=== PATIENT | female | born 1990 | race Caucasian/White ===

== ENCOUNTER 2020-12-25 03:22 | Inpatient (IN) | payer OTHER ==
[~2020-12-25] VITALS: Ht 170.2 cm; Wt 61.2 kg
[2020-12-25] MEDS ORDERED: DEXT 5%/LR + PITOCIN 20UNITS/L 1,000 ML IV SCH ×2 (04:30→08:30)
[2020-12-25] MEDS ORDERED: CARBOPROST TROMETHAMINE 250 MCG/ML AMPUL IM PRN (04:30)
[2020-12-25] MEDS ORDERED: METHYLERGONOVINE MALEATE 0.2 MG/ML IM PRN (04:30)
[2020-12-25] MEDS ORDERED: RHO(D) IMMUNE GLOBULIN 300 MCG/SYR IM ONE (04:30)
[2020-12-25] MEDS ORDERED: BUTORPHANOL TARTRATE 2 MG/ML VIAL IV PRN (04:30)
[2020-12-25] MEDS ORDERED: MISOPROSTOL 200MCG TABLET VG SCH (04:45)
[2020-12-25] MEDS ORDERED: FERR325T6 PO (04:55)
[2020-12-25] MEDS ORDERED: PREN-182 PO (04:55)
[2020-12-25] MEDS ORDERED: FISH GT (04:57)
[2020-12-25] MEDS ORDERED: FAMO20TA8 PO (04:57)
[2020-12-25] MEDS ORDERED: PENICILLIN G POTASSIUM 5 MMU in DEXT 5% WATER 100 ML IV SCH ×3 (05:00→08:00)
[2020-12-25] MEDS: LACTATED RINGERS 1,000 ML IV SCH ×2 (05:04→05:26)
[2020-12-25 05:13] LABS: BASOPHILS % 0.8 % (0.0-2.0); EOSINOPHILS % 0.4 % (0.0-5.0); HEMATOCRIT. 36.7 % (36.0-48.0); LYMPHOCYTES % 28.1 % (20.0-50.0); MEAN CORPUSCULAR HEMOGLOBIN 25.4 pg (28.0-32.0); MEAN CORPUSCULAR VOLUME 78.1 fL (81.0-99.0); MEAN PLATELET VOLUME 8.2 fl (7.4-10.4); NEUTROPHILS % 61.7 % (40.0-76.0); PLATELET 277 x1000/uL (130-400)
[2020-12-25] MEDS ORDERED: KETOROLAC 30MG/ML VIAL IV PRN (05:15)
[2020-12-25] MEDS ORDERED: DIPHENHYDRAMINE 50MG/ML VIAL IV PRN ×2 (05:15→07:15)
[2020-12-25] MEDS ORDERED: CITRIC ACID/SODIUM CITRATE SOLN 30ML UDC PO ONE (05:15)
[2020-12-25] MEDS ORDERED: ONDANSETRON HCL 4MG/2ML INJ IV PRN ×3 (05:15→08:30)
[2020-12-25] MEDS ORDERED: ACETAMINOPHEN 325MG TABLET PO PRN (05:15)
[2020-12-25] MEDS ORDERED: OXYCODONE HCL 5MG TABLET PO PRN (05:15)
[2020-12-25] MEDS ORDERED: METOCLOPRAMIDE HCL 10MG/2ML VIAL ONE (05:21)
[2020-12-25 05:22] LABS: CLARITY URINE CLOUDY (CLEAR); COLOR URINE YELLOW (YELLOW); KETONES URINE NEGATIVE (NEGATIVE); LEUKOCYTE ESTERASE URINE TRACE (NEGATIVE); NITRITE URINE NEGATIVE (NEGATIVE); OCCULT BLOOD URINE 2+ (NEGATIVE); PROTEIN URINE NEGATIVE (NEGATIVE); SPECIFIC GRAVITY URINE 1.012 (1.005-1.030); UROBILINOGEN URINE 0.2 E.U./dL (0.2-1.0)
[2020-12-25] MEDS ORDERED: EPHEDRINE SULFATE 50MG/ML VIAL ONE ×2 (05:24→07:32)
[2020-12-25 05:26] LABS: CHLORIDE 104 mEq/L (98-107); INR 0.9; PARTIAL THROMBOPLASTIN TIME 27.2 sec (23.4-31.0); PROTHROMBIN TIME 9.9 sec (9.6-11.0)
[2020-12-25 05:59] LABS: HEPATITIS B SURFACE ANTIGEN NEGATIVE
[2020-12-25] MEDS ORDERED: TERBUTALINE SULFATE 1MG/ML VIAL SUBCUT ONE (06:00)
[2020-12-25] MEDS ORDERED: IBUPROFEN 600MG TABLET PO SCH (06:00)
[2020-12-25 06:08] LABS: METHADONE URINE SCREEN NEGATIVE (NEGATIVE); OPIATES URINE SCREEN NEGATIVE (NEGATIVE); PHENCYCLIDINE URINE SCREEN NEGATIVE (NEGATIVE)
[2020-12-25 06:09] LABS: *AMPHETAMINES SCREEN URINE NEGATIVE (NEGATIVE); *BARBITURATES SCREEN URINE NEGATIVE (NEGATIVE); *BENZODIAZEPINES SCREEN URINE NEGATIVE (NEGATIVE); *COCAINE SCREEN URINE NEGATIVE (NEGATIVE); CANNABINOID URINE SCREEN NEGATIVE (NEGATIVE)
[2020-12-25] MEDS ORDERED: TERBUTALINE SULFATE 1MG/ML VIAL ONE (06:09)
[2020-12-25] MEDS ORDERED: METOCLOPRAMIDE HCL 10MG/2ML VIAL IV PRN (07:15)
[2020-12-25] MEDS ORDERED: FENTANYL CITRATE/PF 50MCG/ML 2ML VIAL IV PRN (07:15)
[2020-12-25] MEDS ORDERED: MORPHINE SULFATE 10 MG/ML CPJ IV PRN (07:15)
[2020-12-25] MEDS ORDERED: NALOXONE HCL 0.4 MG/ML 1ML VIAL IV PRN (07:15)
[2020-12-25] MEDS ORDERED: CEFAZOLIN SODIUM 1000MG/VIAL ONE (07:31)
[2020-12-25] MEDS ORDERED: MORPHINE SULFATE/PF 1MG/ML 10ML AMP ONE (07:31)
[2020-12-25] MEDS ORDERED: OXYTOCIN 10 UNITS/ML 1ML ONE (07:31)
[2020-12-25] MEDS ORDERED: SUCCINYLCHOLINE CHLORIDE 200MG/10ML IV ONE (07:32)
[2020-12-25] MEDS ORDERED: RHO(D) IMMUNE GLOBULIN 300 MCG/SYR IM PRN (08:30)
[2020-12-25] MEDS ORDERED: LANOLIN OINT 7GM TUBE TOP PRN (08:30)
[2020-12-25] MEDS ORDERED: IBUPROFEN 400MG TABLET PO PRN (08:30)
[2020-12-25] MEDS ORDERED: BISACODYL 10MG SUPP PR PRN (08:30)
[2020-12-25] MEDS ORDERED: HYDROCODONE/ACETAMINOPHEN 5/325MG TABLET PO PRN (08:30)
[2020-12-25] MEDS ORDERED: HEMORRHOIDAL SUPP PR PRN (08:30)
[2020-12-25] MEDS: KETOROLAC 30MG/ML VIAL IV SCH ×3 (08:50→23:31)
[2020-12-25] MEDS ORDERED: PRENATAL VIT/FE FUMARATE/FA TABLET PO SCH (09:00)
[2020-12-25 11:00] VITALS: BP 131/75
[2020-12-25 12:00] VITALS: BP 128/75
[2020-12-25 18:03] VITALS: BP 129/75
[2020-12-25 19:30] VITALS: BP 120/78
[2020-12-25] MEDS: DOCUSATE SODIUM 100MG CAPSULE PO SCH (20:51)
[2020-12-25] MEDS: SIMETHICONE 80MG TABLET CHEW PO SCH (20:52)
[2020-12-25] MEDS: MAGNESIUM/ALUMINUM HYDROXIDE/SIMETHICONE 30ML UDC PO SCH (21:00)
[2020-12-25] MEDS ORDERED: KETOROLAC 30MG/ML VIAL IV SCH (22:15)
[2020-12-26 00:01] VITALS: BP 117/64
[2020-12-26 04:00] VITALS: BP 133/72
[2020-12-26 06:23] LABS: BASOPHILS % 0.2 % (0.0-2.0); EOSINOPHILS % 0.4 % (0.0-5.0); HEMATOCRIT. 31.4 % (36.0-48.0); HEMOGLOBIN. 10.3 g/dL (12.0-16.0); LYMPHOCYTES % 17.9 % (20.0-50.0); MEAN CORPUSCULAR HEMOGLOBIN 25.5 pg (28.0-32.0); MEAN CORPUSCULAR VOLUME 77.9 fL (81.0-99.0); MEAN PLATELET VOLUME 7.6 fl (7.4-10.4); MONOCYTES % 6.6 % (2.0-8.0); NEUTROPHILS % 74.9 % (40.0-76.0); PLATELET 245 x1000/uL (130-400); RED BLOOD CELL COUNT 4.03 mill/uL (4.2-5.4); RED CELL DISTRIBUTION WIDTH 15.2 % (11.6-14.6)
[2020-12-26 07:30] VITALS: BP 131/87
[2020-12-26] MEDS: FERROUS SULFATE 325MG TABLET PO SCH ×3 (08:06→17:09)
[2020-12-26] MEDS: SIMETHICONE 80MG TABLET CHEW PO SCH ×4 (08:07→21:21)
[2020-12-26] MEDS: MAGNESIUM/ALUMINUM HYDROXIDE/SIMETHICONE 30ML UDC PO SCH ×4 (08:07→21:20)
[2020-12-26] MEDS: IBUPROFEN 800MG TABLET PO PRN ×2 (11:22→17:09)
[2020-12-26 14:18] VITALS: BP 125/78
[2020-12-26 19:10] VITALS: BP 133/85
[2020-12-26] MEDS: DOCUSATE SODIUM 100MG CAPSULE PO SCH (21:20)
[2020-12-27] VITALS: BP 138/80
[2020-12-27 05:00] VITALS: BP 136/80
[2020-12-27 05:45] VITALS: BP 148/86
[2020-12-27] MEDS: IBUPROFEN 800MG TABLET PO PRN (05:45)
== END 2020-12-27 12:25 | disposition home or self-care (01) | DRG 540 ==
LOC: 8 EST LDRP 03:22 → OBSVTOIN 03:22 → 8EST 13:04
PROVIDERS: ADMIT Obstetrics & Gynecology; ATTEND Obstetrics & Gynecology
PROC: 10D00Z1 Extraction of Products of Conception, Low, Open Approach (ICD-10-PCS; principal; 2020-12-25)
DX: O32.1XX0 Maternal care for breech presentation, not applicable or unspecified (principal); Z20.822 Contact with and (suspected) exposure to COVID-19; Z37.0 Single live birth; Z3A.39 39 weeks gestation of pregnancy
CPT/HCPCS: 36415; 76815; 80053; 80305; 81003; 85025; 86592; 86703; 86762; 86850; 86900; 87340; 87426; 88307; J0330; J0690; J1885; J2274; J2405; J2540; J2590; J2765; J3010; J3105; J3490; J7060

== ENCOUNTER 2021-02-08 22:42 | Emergency (ER) | payer OTHER ==
[~2021-02-08] VITALS: Ht 170.2 cm; Wt 71.0 kg
[2021-02-08 23:50] VITALS: BP 119/74
== END 2021-02-09 01:37 | disposition left against medical advice (07) ==
LOC: ER 22:42
DX: N93.9 Abnormal uterine and vaginal bleeding, unspecified (principal); Z98.890 Other specified postprocedural states
CPT/HCPCS: 99291